=== PATIENT | female | born 1960 | race Caucasian/White ===

== ENCOUNTER 2019-01-06 06:00 | Inpatient (IN) | payer BC ==
[2019-01-05 08:46] VITALS: BMI 29.3
[~2019-01-06] VITALS: Ht 160 cm; Wt 77.1 kg
[2019-01-06] VITALS (25 sets, daily range): BP systolic 92–141; BP diastolic 52–81; PULSE 52–92; RESP 7–24; Ht 160 cm; Wt 77.1 kg
[~2019-01-06 06:00] MED LIST: CEFAZOLIN 2 GM/50 ML (PMX) 50 ML IVPB SCH; LACTATED RINGER'S 1,000 ML IV* SCH
[2019-01-06] MEDS ORDERED: AMLO1CAP10 PO (07:23)
[2019-01-06] MEDS ORDERED: PROG100C5 PO (07:26)
[2019-01-06] MEDS ORDERED: PRAS1TAB2 PO (07:27)
[2019-01-06] MEDS ORDERED: MULT-542 PO (07:28)
--- NOTE | 2019-01-06 07:41 | HPN ---
Date/Time of Note Date/Time of Note DATE: 01/06/19 TIME: 07:41 Interval H&P Admission Note Pt. seen H&P reviewed: No system changes JOE COLLAZO MD January 06, 2019 07:41
[2019-01-06] MEDS ORDERED: GELATIN SIZE 100 SPONGE ONE (07:42)
[2019-01-06] MEDS ORDERED: THROMBIN (BOVINE) 5,000 UNIT VIAL TP ONE (07:42)
[2019-01-06] MEDS ORDERED: BUPIVACAINE 0.5%/EPI (SDV) 30 ML INJ ONE (07:42)
[2019-01-06] MEDS ORDERED: CEFAZOLIN 1 GM INJ ONE ×2 (07:43→13:00)
[2019-01-06] MEDS ORDERED: HEPARIN 1000 UNITS/ML 10 ML INJ ONE (07:43)
--- NOTE | 2019-01-06 08:00 | PREAC ---
Date/Time of Note Date/Time of Note DATE: 01/06/19 TIME: 07:56 Anesthesia Eval and Record Evaluation Time Pre-Procedure Interview DATE: 01/06/19 TIME: 07:56 Age 58 Sex female NPO: 8 hrs Preoperative diagnosis L4-L5 degenerative spondylolisthesis Planned procedure L4-L5 Lumbar decompression Past Medical History Past Medical History: Includes Cardio: HTN GI: Morbid obesity Surgery & Anesthesia Issues No known issue Meds Anticoagulation: No Beta Sabrina within 24 hr: No Reason Beta Sabrina not given: Pt. not on B-Sabrina Reported Medications Multivitamin* (Daily Value*) 1 Each Tablet, 1 TAB PO DAILY, TAB 01/06/19 Prasterone (Dhea)/Calcium Carb (Dhea Tablet) 1 Each Tablet, 1 EACH PO DAILY, TAB 01/06/19 Progesterone,Micronized* (Progesterone*) 100 Mg Capsule, 100 MG PO HS, CAP 01/06/19 Amlodipine Besylate/Benazepril (Amlodipine-Benazepril 5-20 mg) 1 Each Capsule, 1 EACH PO QPM, CAP 01/06/19 Current Medications Cefazolin Sodium/ Dextrose 50 ml @ 100 mls/hr PRE-OP IVPB ; Start 01/06/19 at 06:00; Stop 01/06/19 at 15:00 Lactated Ringer's 1,000 ml @ 0 mls/hr Q0M IV* Last administered on 01/06/19at 07:22; Admin Dose 25 MLS/HR; Start 01/06/19 at 06:00; Stop 01/06/19 at 15:00 Meds reviewed: Yes Allergies Coded Allergies: prochlorperazine (Verified Allergy, Severe, 01/06/19) castor oil (Verified Allergy, Unknown, 01/06/19) morphine (Verified Allergy, Unknown, 01/06/19) Allergies Reviewed: Yes Labs/Studies Labs Reviewed: Reviewed by anesthesiologist Blood Bank Test 01/06/19 06:51 01/06/19 07:20 Blood Product Summary Counts Blood Type O POSITIVE test: N/A Studies: ECG Pre-procedure Exam Last vitals Vital Signs Date Temp Pulse Resp B/P (MAP) Pulse Ox O2 O2 Flow FiO2 Time Delivery Rate 01/06/19 97.2 89 18 141/81 97 Room Air 07:14 (101) Airway: Adequate mouth opening, Adequate thyromental dist Mallampati: Mallampati II Teeth: Normal Lung: Normal Heart: Normal ASA Physical Status ASA physical status: 3 Emergency: None Planned Anesthetic General/MAC: ETT Planned Pain Management Parenteral pain med Pre-operative Attestations Prior to commencing anesthesia and surgery, the patient was re-evaluated, there was verification of: *The patient's identity *The results of appropriate recent lab work and preoperative vital signs *The above evaluation not changing prior to induction *Anesthetic plan, risk benefits, alternative and complications discussed with patient/family; questions answered; patient/family understands, accepts and wishes to proceed. CHRISTOPHER SYKES MD January 06, 2019 07:59
[2019-01-06] MEDS ORDERED: MIDAZOLAM 1 MG/ML 2 ML INJ ONE (08:05)
[2019-01-06] MEDS ORDERED: SURGIFOAM POWDER 1 GM KIT ONE (09:17)
[2019-01-06] MEDS ORDERED: FUROSEMIDE 20 MG INJ ONE (12:17)
[2019-01-06] MEDS ORDERED: FENTAnyl 50 MCG/ML VIAL ONE ×2 (12:41→13:17)
[2019-01-06] MEDS ORDERED: METOCLOPRAMIDE 10 MG INJ ONE (12:43)
[2019-01-06] MEDS ORDERED: ONDANSETRON 4 MG INJ ONE (12:43)
--- NOTE | 2019-01-06 12:47 | OPR ---
Date/Time of Note Date/Time of Note DATE: 01/06/19 TIME: 12:36 Operative Report Free Text/Dictation DATE OF OPERATION: 01/06/2019 PREOPERATIVE DIAGNOSES: 1. L4-5 unsatble grade 2 degenerative spondylolisthesis with spinal stenosis and bilateral L4 and L5 radiculopathy 2. Obesity BMI: 30.1 kg/m2 POSTOPERATIVE DIAGNOSES: 1. L4-5 unsatble grade 2 degenerative spondylolisthesis with spinal stenosis and bilateral L4 and L5 radiculopathy 2. Obesity BMI: 30.1 kg/m2 OPERATION PERFORMED: 1. Anterior lumbar interbody fusion L4-5 2. Placement of anterior interbody device L4-5 3. Placement of posterior spinal segmental instrumentation L4-5 4. Posterior spinal fusion L4-5 5. Interpretation of neuromonitoring SURGEON: Joe Collazo MD Vascular surgeon: Ed Mathis MD ANESTHESIA: General endotracheal ESTIMATED BLOOD LOSS: 150 cc SURGICAL INDICATION: The patient is a 58 year-old female who presents with an increasing history of back and bilateral (right greater than left) lower extremity pain. The patient was found to have an unstable spondylolisthesis at L4-5 with associated stenosis. The patient had failed conservative treatments. Risks, benefits and alternatives to an anterior and posterior spinal fusion with instrumentation were explained to the patient including but not exclusive of bleeding, infection, visceral injury, nerve injury, nonunion, instrumentation failure, lack of symptom relief, myocardial infarction, stroke, and pulmonary embolism, and they wished to proceed. DESCRIPTION OF TECHNIQUE: The patient was identified in the preoperative area and taken to the operating room. Rapid induction of general endotracheal anesthesia was performed. Patient was given 2 grams of ancef for prophylaxis. The patient was positioned in the supine position on the operative table. All bony prominences were well padded. The patient's abdomen and left flank were prepped and draped in the usual sterile fashion. An oblique skin incision was made across the L4-L5 level by our vascular surgeon Dr. Mathis. After the exposure was completed, I performed a L4-L5 diskectomy. The disc was incised using a sharp 15 mm blade. I then used a harris elevator to loosen the disk material from the superior and inferior endplates. I then used a rongeur to remove the disc material and a series of curved and straight curettes to evacuate the disc space. I also used a series of pituitaries and kerrisons to ensure appropriate end plate preparation. Attention was placed to ensure removal of disk material to bleeding endplates without violation of the endplate. I then used the trial rasps to prepare and size the disc space and was able to place a 13 mm trial allograft FRA spacer with 12 degrees of lordosis. To ensure appropriate sizing of the implant, I checked for fit and placement under C arm control and I felt the 12 degree lordotic 13 mm cage gained good lordosis and scientology of disc height and was an appropriate fit. I also ensured appropriate reduction of the grade 2 spondylolisthesis. I then inserted the 15mm RFA cage after the trail. This cage was filled with a extra-small BMP and morselized bone allograft. A butress screw with a washer was then placed in the L4 vertebral body using the guide under fluoroscopy . Additional morselized allograft was placed around and anterior to the cage in the disc space. 2mL of tisseal was also used prior to placement of the cage in order to reduce the risk of BMP radiculitis. The wound was then irrigated. X- rays were taken to check for instruments. The wound was then closed by our vascular access surgeon in standard technique. The posterior rectus sheath and anterior rectus sheath were both repaired. Sterile dressing was then placed. Attention was then turned toward the instrumented fusion procedure from L4-L5. At this point, the patient was flipped to the prone position with all bony promi nences well-padded on a Andres table. We ensured that the antibiotics were appropriately redosed. The lumbar spine was then prepped and draped in sterile fashion. A timeout was once again performed. Using intraoperative fluoroscopy, the pedicles were identified at each level. Care was taken to alter the fluoroscopic view to have a true AP and lateral at each level. Jamshidi needles were then passed down to the lateral aspect of the pedicles through stab incisions. The Jamshidi needles were malleted into the pedicles. These were also performed under EMG guidance. Care was taken to ensure that the needles did not pass the medial wall of the pedicle on the AP view prior to checking that the needle was past the posterior wall of the vertebral body. The needles were then malleted further into the vertebral bodies themselves. Guidewires were passed through the needles and the needles were removed. Taps were applied over the guidewires. Screws were then placed bilaterally into the vertebral bodies. AP and lateral views confirmed appropriate placement of the instrumentation. Attention was turned toward the posterior spinal fusion from L4-5. Rods were selected of the appropriate length and placed into the screw heads. End caps were applied and final tightening was performed using a spbbha-cxdoeec-nzrjak wrench. The exposed facet joints were decorticated using a bur. A small remaining amount of allograft was placed into the facet joints to facilitate the posterior fusion. Given the patients obesity (BMI 30.1 kg/m2), this procedure took an addition 45 minutes for exposure and implant placement. The wound was irrigated copiously using normal saline. The fascia was then closed using 1 Vicryl in interrupted fashion. Subcutaneous tissue was closed using 2-0 Vicryl in interrupted fashion. Skin was closed using a running 4-0 Monocryl stitch. The wounds were dressed using Dermabond, sterile gauze and Tegaderm. The patient was returned to the supine position. The patient was extubated immediately postoperatively and taken to the recovery room in stable condition. Patient tolerated the procedure well and left the operating room in stable condition. Implants used: 1.Depuy/ Synthes FRA 13mm height/ 12 degree lordotic cage at L4-5 2. Extra-Small BMP with 30 cc of cancellous bone chips 3. 6.0/24 mm buttress screws with washer 1 4. NuVasive 6.545 mm screws at bilateral L4 and L5 7. 35 mm Antwan x 1 (Right), 30 mm Antwan x 1 (Left) Procedure Date: January 06, 2019 Preoperative Diagnosis 1. L4-5 unsatble grade 2 degenerative spondylolisthesis with spinal stenosis and bilateral L4 and L5 radiculopathy 2. Obesity BMI: 30.1 kg/m2 Postoperative Diagnosis 1. L4-5 unsatble grade 2 degenerative spondylolisthesis with spinal stenosis and bilateral L4 and L5 radiculopathy 2. Obesity BMI: 30.1 kg/m2 Operation/Procedure Performed 1. Anterior lumbar interbody fusion L4-5 2. Placement of anterior interbody device L4-5 3. Placement of posterior spinal segmental instrumentation L4-5 4. Posterior spinal fusion L4-5 5. Interpretation of neuromonitoring Surgeon see signature line Cad Draftsman see op report Anesthesia Type: general Estimated Blood Loss: 200 - 250 ml's Transfusion none Specimen none Grafts/Implants see op report Complications none Pt Condition Post Procedure: stable Disposition: PACU Procedure Description DESCRIPTION OF TECHNIQUE: The patient was identified in the preoperative area and taken to the operating room. Rapid induction of general endotracheal anesthesia was performed. Patient was given 2 grams of ancef for prophylaxis. The patient was positioned in the supine position on the operative table. All bony prominences were well padded. The patient's abdomen and left flank were prepped and draped in the usual sterile fashion. An oblique skin incision was made across the L4-L5 level by our vascular surgeon Dr. Mathis. After the exposure was completed, I performed a L4-L5 diskectomy. The disc was incised using a sharp 15 mm blade. I then used a harris elevator to loosen the disk material from the superior and inferior endplates. I then used a rongeur to remove the disc material and a series of curved and straight curettes to evacuate the disc space. I also used a series of pituitaries and kerrisons to ensure appropriate end plate preparation. Attention was placed to ensure removal of disk material to bleeding endplates without violation of the endplate. I then used the trial rasps to prepare and size the disc space and was able to place a 13 mm trial allograft FRA spacer with 12 degrees of lordosis. To ensure appropriate sizing of the implant, I checked for fit and placement under C arm control and I felt the 12 degree lordotic 13 mm cage gained good lordosis and scientology of disc height and was an appropriate fit. I also ensured appropriate reduction of the grade 2 spondylolisthesis. I then inserted the 15mm RFA cage after the trail. This cage was filled with a extra-small BMP and morselized bone allograft. A butress screw with a washer was then placed in the L4 vertebral body using the guide under fluoroscopy . Additional morselized allograft was placed around and anterior to the cage in the disc space. 2mL of tisseal was also used prior to placement of the cage in order to reduce the risk of BMP radiculitis. The wound was then irrigated. X- rays were taken to check for instruments. The wound was then closed by our vascular access surgeon in standard technique. The posterior rectus sheath and anterior rectus sheath were both repaired. Sterile dressing was then placed. Attention was then turned toward the instrumented fusion procedure from L4-L5. At this point, the patient was flipped to the prone position with all bony prominences well-padded on a Andres table. We ensured that the antibiotics were appropriately redosed. The lumbar spine was then prepped and draped in sterile fashion. A timeout was once again performed. Using intraoperative fluoroscopy, the pedicles were identified at each level. Care was taken to alter the fluoroscopic view to have a true AP and lateral at each level. Jamshidi needles were then passed down to the lateral aspect of the pedicles through stab incisions. The Jamshidi needles were malleted into the pedicles. These were also performed under EMG guidance. Care was taken to ensure that the needles did not pass the medial wall of the pedicle on the AP view prior to checking that the needle was past the posterior wall of the vertebral body. The needles were then malleted further into the vertebral bodies themselves. Guidewires were passed through the needles and the needles were removed. Taps were applied over the guidewires. Screws were then placed bilaterally into the vertebral bodies. AP and lateral views confirmed appropriate placement of the instrumentation. Attention was turned toward the posterior spinal fusion from L4-5. Rods were selected of the appropriate length and placed into the screw heads. End caps were applied and final tightening was performed using a tmfmja-qcictmh-yduwiv wrench. The exposed facet joints were decorticated using a bur. A small remaining amount of allograft was placed into the facet joints to facilitate the posterior fusion. Given the patients obesity (BMI 30.1 kg/m2), this procedure took an addition 45 minutes for exposure and implant placement. The wound was irrigated copiously using normal saline. The fascia was then closed using 1 Vicryl in interrupted fashion. Subcutaneous tissue was closed using 2-0 Vicryl in interrupted fashion. Skin was closed using a running 4-0 Monocryl stitch. The wounds were dressed using Dermabond, sterile gauze and Tegaderm. The patient was returned to the supine position. The patient was extubated immediately postoperatively and taken to the recovery room in stable condition. Patient tolerated the procedure well and left the operating room in stable condition. Implants used: 1.Depuy/ Synthes FRA 13mm height/ 12 degree lordotic cage at L4-5 2. Extra-Small BMP with 30 cc of cancellous bone chips 3. 6.0/24 mm buttress screws with washer 1 4. NuVasive 6.545 mm screws at bilateral L4 and L5 7. 35 mm Antwan x 1 (Right), 30 mm Antwan x 1 (Left) JOE COLLAZO MD January 06, 2019 12:46
[2019-01-06] MEDS ORDERED: LIDOCAINE 2% (SDV) 5 ML INJ ONE (13:00)
[2019-01-06] MEDS ORDERED: ONDANSETRON 4 MG INJ IV PRN ×2 (13:00→13:30)
[2019-01-06] MEDS ORDERED: NALOXONE (0.4 MG/ML) INJ IV PRN (13:00)
[2019-01-06] MEDS ORDERED: NACL 0.9% 3 ML SYG IV SCH (13:00)
[2019-01-06] MEDS ORDERED: AL HYDROX/MG HYDROX/SIMETH 30 ML CUP PO PRN (13:00)
[2019-01-06] MEDS ORDERED: PROPOFOL 20 ML ONE (13:00)
[2019-01-06] MEDS ORDERED: ROCURONIUM 50 MG INJ ONE (13:00)
[2019-01-06] MEDS ORDERED: ACETAMINOPHEN 325 MG TAB PO PRN (13:00)
[2019-01-06] MEDS ORDERED: GLYCOPYRROLATE 0.4 MG INJ ONE (13:00)
[2019-01-06] MEDS ORDERED: NEOSTIGMINE 3 MG/3 ML SYRINGE ONE (13:00)
--- NOTE | 2019-01-06 13:19 | PAC ---
Date/Time of Note Date/Time of Note DATE: 01/06/19 TIME: 13:18 Post-Anesthesia Notes Post-Anesthesia Note Last documented vital signs Vital Signs Date Temp Pulse Resp B/P (MAP) Pulse Ox O2 O2 Flow FiO2 Time Delivery Rate 01/06/19 97.2 89 18 141/81 97 Room Air 07:14 (101) Activity: WNL Respiratory function: WNL Cardiovascular function: WNL Mental status: Baseline Pain reasonably controlled: Yes Hydration appropriate: Yes Nausea/Vomiting absent: Yes Comments BP:119/56, P:78, Spo2:100%, T:98,8 CHRISTOPHER SYKES MD January 06, 2019 13:19
[2019-01-06] MEDS ORDERED: METOCLOPRAMIDE 10 MG INJ IV PRN (13:30)
[2019-01-06] MEDS ORDERED: LABETALOL HCL 20MG INJ IV PRN (13:30)
[2019-01-06] MEDS ORDERED: hydrALAzine 20 MG INJ IV PRN (13:30)
[2019-01-06] MEDS ORDERED: DIPHENHYDRAMINE 50 MG INJ IV PRN ×2 (13:30→20:00)
[2019-01-06] MEDS ORDERED: FENTAnyl 50 MCG/ML VIAL IV PRN ×2 (13:30)
[2019-01-06] MEDS: HYDROmorphONE 0.2 MG/ML PCA IV SCH (13:36)
[2019-01-06] MEDS: ACETAMINOPHEN 1000MG/100ML IV 100 ML IVPB SCH (14:15)
--- NOTE | 2019-01-06 15:33 | OPR ---
DATE OF OPERATION: PREOPERATIVE DIAGNOSIS: Degenerative disk disease, lumbar spine. POSTOPERATIVE DIAGNOSIS: Degenerative disk disease, lumbar spine. PROCEDURE: Anterior retroperitoneal exposure interbody fusion, lumbar spine, L4 to L5. SURGEON: Rajni Velez MD ESTIMATED BLOOD LOSS: Joe Collazo MD INFORMED CONSENT: Risks, benefits, complications, alternative therapies and high-risk nature of the operation were fully explained to the patient and the family. Consent was obtained. Risks and benef its that were explained to the patient and the family included but not limited to bleeding, infection , damage to bowel, damage to ureter, wound infection, wound dehiscence, DVT, PE, loss of limb, loss o f life, high-risk nature of the operation were fully explained and stressed to the patient. All ques tions were answered. OPERATIVE TECHNIQUE: The patient was placed in supine position, prepped and draped in usual sterile fashion. Timeout was called. Antibiotic was given. I made a 10 cm incision in the left lower quadr ant in horizontal fashion. Incision was taken down to subcutaneous tissue which was then opened usin g electrocautery. Left anterior rectus sheath was opened in the direction of the wound. Posterior r ectus sheath was incised superiorly about 2 cm. Bookwalter retractor was placed retracting the bowel contents to the right, left rectus muscle to the left. I dissected the left common iliac artery and vein, external iliac artery and vein. The left iliolumbar veins and the lowest segmental vessels on the left side were ligated using 2-0 silk sutures and titanium clip. Exposure for L4 to L5 was obta ined by retracting the left common iliac artery and vein, external iliac artery and vein, vena cava a nd aorta to the right. We proceeded with the diskectomy and placement of the new cage. Please refer to Dr. Collazo's dictation for the details of that operation. After all the x-rays were satisfact ory read by Dr. Collazo, needle count and sponge count was correct. The wound was irrigated using antibiotic solution. Anterior rectus sheath was closed using a #1 Vicryl suture in running fashion w ith interrupted sutures in the middle. The wound was irrigated again and closed in 2 layers of 2-0 V icryl suture for subcutaneous and Steri-Strips for the skin. The patient tolerated procedure well. Dictated By: RAJNI VELEZ MD FM/NTS Conf#: [id number] [facility]#: [id number] CC: JOE COLLAZO MD; MARIKA LORD MD;*EndCC*
[2019-01-06] MEDS: CEFAZOLIN 1 GM/50 ML (PMX) 50 ML IVPB SCH ×2 (17:40→23:26)
[2019-01-06] MEDS: DIPHENHYDRAMINE 50 MG INJ IV PRN (17:41)
[2019-01-06] MEDS ORDERED: KETOROLAC 30 MG INJ IV STA (19:58)
[2019-01-06] MEDS ORDERED: METHOCARBAMOL 500 MG TAB PO PRN (20:00)
[2019-01-06] MEDS ORDERED: KETOROLAC 30 MG INJ IV PRN (20:00)
[2019-01-06] MEDS: HYDROCODONE/APAP (10/325) TAB GTB PRN (23:30)
[2019-01-07] MEDS: ACETAMINOPHEN 1000MG/100ML IV 100 ML IVPB SCH (01:21)
[2019-01-07] MEDS: HYDROmorphONE 0.2 MG/ML PCA IV SCH (02:19)
[2019-01-07] MEDS: DIPHENHYDRAMINE 50 MG INJ IV PRN (02:29)
[2019-01-07] MEDS: HYDROCODONE/APAP (10/325) TAB GTB PRN (04:51)
[2019-01-07] MEDS ORDERED: ACETAMINOPHEN 1000MG/100ML IV 100 ML IVPB STA (04:58)
[2019-01-07] MEDS ORDERED: LORAZEPAM 2 MG INJ IV STA (04:58)
[2019-01-07] MEDS: CEFAZOLIN 1 GM/50 ML (PMX) 50 ML IVPB SCH ×2 (05:12→12:33)
[2019-01-07] MEDS: OXYCODONE/ACETAMINOPHEN (10/325) TAB PO PRN ×5 (07:36→23:28)
--- NOTE | 2019-01-07 07:53 | CONS ---
Consultation Date/Type/Reason Admit Date/Time January 06, 2019 at 06:00 Initial Consult Date Date/Time of Note DATE: 01/07/19 TIME: 07:30 24 HR Interval Summary Free Text/Dictation S: 58 yo F POD#1 s/p L4-5 ALIF w/ PSIF for unstable grade 2 spondylolisthesis. No acute events over-night. Complaining of back pain w/ difficulty w/ pain control given multiple drug allergies. Complains of itchiness w/ dilaudid. Dilaudid was d/c this am. Currently on percocet, robaxin and toradol for pain control. Tolerating clears. Reports that pain is under better control. She has not passed gas. O: Vital Signs Date Temp Pulse Resp B/P (MAP) Pulse Ox O2 O2 Flow FiO2 Time Delivery Rate 01/07/19 20 01:43 01/06/19 98.1 92 18 121/74 100 23:49 (90) Gen: AAOx3, NAD Spine: 4/5 Right KE, 01/08 b/l TA/GS/EHL, +SILT L3-S1, incisions C/D/I Abdomen: Incision C/D/I, mild distension, no TTP Labs: Laboratory Tests Test 01/07/19 04:39 01/07/19 07:16 Hemoglobin 11.3 g/dl Hematocrit 33.9 % Sodium Level 139 mmol/L Potassium Level 3.5 mmol/L Chloride Level 106 mmol/L Carbon Dioxide Level 28 mmol/L Anion Gap 5 Blood Urea Nitrogen 9 mg/dl Creatinine 0.63 mg/dl Est Glomerular Filtrat Rate mL/min > 60 mL/min Glucose Level 96 mg/dl Calcium Level 8.8 mg/dl Lab Scanned Report REFERENCE LAB [id number] Current Medications Medications Dose Sig/Erica Start Time Status Last (Trade) Ordered Route PRN Stop Time Admin Dose Reason Admin Cefazolin 50 ml @ PRE-OP 01/06/19 DC Sodium/ 100 mls/hr IVPB 06:00 01/06/19 Dextrose 12:53 Lactated 1,000 ml @ Q0M IV* 01/06/19 DC 01/06/19 Ringer's 0 mls/hr 06:00 01/06/19 07:22 25 12:54 MLS/HR Gelatin 2 sponge STK-MED 01/06/19 DC 01/06/19 (Gelatin ONCE .ROUTE 07:42 01/06/19 07:42 1 Size 100 07:43 SPONGE Sponge) Thrombin 20,000 unit STK-MED 01/06/19 DC 01/06/19 (Thrombin-Jmi ONCE TP 07:42 01/06/19 07:42 15,000 ) 07:43 UNIT Bupivacaine 30 ml STK-MED 01/06/19 DC 01/06/19 HCl/ ONCE .ROUTE 07:42 01/06/19 07:42 30 ML Epinephrine 07:43 Bitart ([place]aine 0.5%/ Epi (Sdv)) Cefazolin 1 gm STK-MED 01/06/19 DC 01/06/19 Sodium ONCE .ROUTE 07:43 01/06/19 07:43 1 GM (Ancef) 07:44 Heparin 30,000 unit STK-MED 01/06/19 DC Sodium ONCE .ROUTE 07:43 01/06/19 (Porcine) 07:44 (Heparin (1000 Units/ml)) Midazolam 2 mg STK-MED 01/06/19 DC HCl ONCE .ROUTE 08:05 01/06/19 (Versed) 08:06 Fentanyl 5 ml @ ud STK-MED 01/06/19 DC ONCE .ROUTE 08:01/06/19 08:06 Gelatin 1 gm STK-MED 01/06/19 DC 01/06/19 (Surgifoam ONCE .ROUTE 09:17 01/06/19 09:17 1 GM Kit) 09:18 Furosemide 20 mg STK-MED 01/06/19 DC (Lasix) ONCE .ROUTE 12:17 01/06/19 12:18 Fentanyl 100 mcg STK-MED 01/06/19 DC (Sublimaze) ONCE .ROUTE 12:41 01/06/19 12:42 Ondansetron 4 mg STK-MED 01/06/19 DC HCl (Zofran ONCE .ROUTE 12:43 01/06/19 Inj) 12:44 10 mg STK-MED 01/06/19 DC Metoclopramid ONCE .ROUTE 12:43 01/06/19 e HCl 12:44 (Reglan) Cefazolin 50 ml @ Q6 IVPB 01/06/19 01/07/19 Sodium 100 mls/hr 18:00 01/07/19 05:12 100 12:29 MLS/HR Ondansetron 4 mg Q6H PRN 01/06/19 HCl (Zofran IV 13:00 Inj) NAUSEA/VOMITI NG Al 15 ml Q4H PRN 01/06/19 Hydrox/Mg PO 13:00 Hydrox/Simeth .CONSTIPATION icone (Mag-Al Plus) Docusate 100 mg BID PO 01/07/19 Sodium 09:00 (Colace) 650 mg Q4H PRN 01/06/19 Acetaminophen PO TEMP 13:00 (Tylenol GREATER THAN Tab) 101F OR BERRY IV Flush 3 ml PER 01/06/19 (NS 3 ml) PROTOCOL IV 13:00 Naloxone 0.2 mg Q2M PRN 01/06/19 HCl IV RR 8 13:00 (Narcan) BREATHS/MIN OR LESS MG/HR Q4PCA IV 01/06/19 DC 01/07/19 Hydromorphone CONTINUOUS 13:00 01/07/19 02:19 6 MG HCl R... 05:03 (Dilaudid PIPE INSTALLER) Propofol 20 ml @ ud STK-MED 01/06/19 DC ONCE .ROUTE 13:00 01/06/19 13:01 Neostigmine 3 mg STK-MED 01/06/19 DC Methylsulfate ONCE .ROUTE 13:01/06/19 13:01 (Neostigmine) Rocuronium 50 mg STK-MED 01/06/19 DC [place] ONCE .ROUTE 13:01/06/19 (Zemuron) 13:01 0.4 mg STK-MED 01/06/19 DC Glycopyrrolat ONCE .ROUTE 13:00 01/06/19 e (Robinul) 13:01 Lidocaine 100 mg STK-MED 01/06/19 DC (Xylocaine ONCE .ROUTE 13:00 01/06/19 2% (Sdv)) 13:01 Cefazolin 1 gm STK-MED 01/06/19 DC Sodium ONCE .ROUTE 13:01/06/19 (Ancef) 13:01 Fentanyl 100 mcg STK-MED 01/06/19 DC (Sublimaze) ONCE .ROUTE 13:17 01/06/19 13:18 Fentanyl 25 mcg PACU ORDER 01/06/19 DC 01/06/19 (Sublimaze) PRN IV MILD 13:30 5/3/19 16:53 25 MCG PAIN 1-3 17:30 Fentanyl 50 mcg PACU ORDER 01/06/19 DC (Sublimaze) PRN IV MOD 13:30 01/06/19 PAIN 4-6 17:30 Ondansetron 4 mg PACU ORDER 01/06/19 DC HCl (Zofran PRN IV 13:30 01/06/19 Inj) NAUSEA/VOMITI 17:30 NG 10 mg PACU ORDER 01/06/19 DC Metoclopramid PRN IV 13:30 01/06/19 e HCl NAUSEA/VOMITI 17:30 (Reglan) NG Labetalol 5 mg PACU ORDER 01/06/19 DC HCl PRN IV HIGH 13:30 01/06/19 (Labetalol) BLOOD 17:30 PRESSURE Hydralazine 5 mg PACU ORDER 01/06/19 DC HCl PRN IV HIGH 13:30 01/06/19 (Apresoline) BLOOD 17:30 PRESSURE 25 mg PACU ORDER 01/06/19 DC Diphenhydrami PRN IV 13:30 01/06/19 ne HCl .PRURITUS 17:30 (Benadryl) 100 ml @ Q12H IVPB 01/06/19 DC 01/07/19 Acetaminophen 400 mls/hr 14:00 01/07/19 01:21 400 02:14 MLS/HR 25 mg Q6H PRN 01/06/19 01/07/19 Diphenhydrami IV PRURITIS 18:00 02:29 25 MG ne HCl (Benadryl) Ketorolac 30 mg ONCE STAT 01/06/19 DC 01/06/19 Tromethamine IV 19:58 01/06/19 20:23 30 MG (Toradol) 20:12 1 tab Q4H PRN 01/06/19 DC 01/07/19 Acetaminophen GTB MODERATE 20:00 01/07/19 04:51 1 TAB / PAIN LEVEL 05:03 Hydrocodone 4-6 Bitart ([place] (10/325)) 25 mg Q4 PRN IV 01/06/19 01/06/19 Diphenhydrami ITCHING 20:00 22:06 25 MG ne HCl (Benadryl) 500 mg Q8 PRN PO 01/06/19 01/06/19 Methocarbamol muscle spasm 20:00 23:30 500 MG (Robaxin) Ketorolac 30 mg Q12 PRN 01/06/19 01/07/19 Tromethamine IV PAIN 20:00 01/09/19 01:27 30 MG (Toradol) LEVEL 8-10 19:59 100 ml @ ONCE STAT 01/07/19 DC 01/07/19 Acetaminophen 400 mls/hr IVPB 04:58 01/07/19 05:33 400 05:12 MLS/HR Oxycodone/ 1 tab Q4H PRN 01/07/19 Acetaminophen PO SEVERE 05:00 (Endocet PAIN LEVEL (10/ 325)) 7-10 Lorazepam 1 mg ONCE STAT 01/07/19 DC 01/07/19 (Ativan) IV 04:58 01/07/19 05:12 1 MG 05:04 A/P: 58 yo F POD#1 s/p L4-5 ALIF w/ PSIF for unstable grade 2 spondylolisthesis. 1. OOB w/ PT; ok to get OOB w/ lumbar corset until LSO brace arrives 2. Advance diet to regular once passing gas 3. D/C Dilaudid and Robaxin 4. Pain control w/ toradol 30 mg IV Q12, Percocet 10/325 mg q 4hrs prn, ativan 1 mg IV Q 8 5. Appreciate med recs Exam/Review of Systems Exam Vitals Vital Signs Date Temp Pulse Resp B/P (MAP) Pulse Ox O2 O2 Flow FiO2 Time Delivery Rate 01/07/19 20 01:43 01/06/19 98.1 92 121/74 100 23:49 (90) 01/06/19 Nasal 2.0 19:38 Cannula Intake and Output 01/06/19 01/06/19 01/07/19 1515:00 23:00 07:00 IntakeIntake Total 1500 ml 990 ml 680 ml OutputOutput Total 500 ml 600 ml 800 ml BalanceBalance 1000 ml 390 ml -120 ml Results Result Diagram: 01/07/19 0439 01/07/19 0439 Results 24hrs Laboratory Tests Test 01/07/19 04:39 01/07/19 07:16 Hemoglobin 11.3 L Hematocrit 33.9 L Sodium Level 139 Potassium Level 3.5 Chloride Level 106 Carbon Dioxide Level 28 Anion Gap 5 Blood Urea Nitrogen 9 Creatinine 0.63 Est Glomerular Filtrat Rate mL/min > 60 Glucose Level 96 Calcium Level 8.8 Lab Scanned Report REFERENCE LAB Medications Medication Current Medications Cefazolin Sodium 50 ml @ 100 mls/hr Q6 IVPB Last administered on 01/07/19at 05:12; Admin Dose 100 MLS/HR; Start 01/06/19 at 18:00; Stop 01/07/19 at 12:29 Ondansetron HCl (Zofran Inj) 4 mg Q6H PRN IV NAUSEA/VOMITING; Start 01/06/19 at 13:00 Al Hydrox/Mg Hydrox/Simethicone (Mag-Al Plus) 15 ml Q4H PRN PO .CONSTIPATION; Start 01/06/19 at 13:00 Docusate Sodium (Colace) 100 mg BID PO ; Start 01/07/19 at 09:00 Acetaminophen (Tylenol Tab) 650 mg Q4H PRN PO TEMP GREATER THAN 101F OR BERRY; Start 01/06/19 at 13:00 IV Flush (NS 3 ml) 3 ml PER PROTOCOL IV ; Start 01/06/19 at 13:00 Naloxone HCl (Narcan) 0.2 mg Q2M PRN IV RR 8 BREATHS/MIN OR LESS; Start 01/06/19 at 13:00 Diphenhydramine HCl (Benadryl) 25 mg Q6H PRN IV PRURITIS Last administered on 01/07/19at 02:29; Admin Dose 25 MG; Start 01/06/19 at 18:00 Diphenhydramine HCl (Benadryl) 25 mg Q4 PRN IV ITCHING Last administered on 01/06/19at 22:06; Admin Dose 25 MG; Start 01/06/19 at 20:00 Methocarbamol (Robaxin) 500 mg Q8 PRN PO muscle spasm Last administered on 01/06at 23:30; Admin Dose 500 MG; Start 01/06/19 at 20:00 Ketorolac Tromethamine (Toradol) 30 mg Q12 PRN IV PAIN LEVEL 8-10 Last administered on 01/07/19at 01:27; Admin Dose 30 MG; Start 01/06/19 at 20:00; Stop 01/09/19 at 19:59 Oxycodone/ Acetaminophen (Endocet (10/ 325)) 1 tab Q4H PRN PO SEVERE PAIN LEVEL 7-10; Start 5/4/19 at 05:00 JOE COLLAZO MD January 07, 2019 07:53
[2019-01-07] MEDS ORDERED: POTASSIUM CHLORIDE 20 MEQ in DEXTROSE 5%-0.45% NACL 1,000 ML IV SCH (08:00)
[2019-01-07 08:14] VITALS: BP 96/56; PULSE 90; RESP 18
[2019-01-07] MEDS: DOCUSATE SODIUM 100 MG CAP PO SCH ×2 (08:37→21:02)
[2019-01-07] MEDS: D5W-0.45 NACL + KCL 20 MEQ 1,000 ML IV SCH ×3 (08:38→21:06)
[2019-01-07] MEDS ORDERED: POTASSIUM CHLORIDE (SR) 10 MEQ TAB PO ONE (12:00)
[2019-01-07 14:22] VITALS: BP 126/68; PULSE 92; RESP 20
--- NOTE | 2019-01-07 14:27 | CONS ---
DATE OF ADMISSION: 01/06/2019 DATE OF CONSULTATION: 01/07/2019 TYPE OF CONSULTATION: Postop medical consultation. Dear. Dr. Collazo: Thank you very much for allowing me to evaluate this 58-year-old female who underwent lumbar back jesus axel yesterday. HISTORICAL EVENTS: As you well know, this patient has had progressive disabling pain involving her l ow back, and because of this, having not responded to conservative therapy, elected to proceed with s urgical intervention. Postoperatively, she is reasonably comfortable noting some mild to moderate ba ck pain without cough, wheezing, shortness of breath, chest pain, nausea, vomiting, or abdominal pain . Pierre catheter is in place. PAST MEDICAL HISTORY: Very unremarkable except for hypertension without history of coronary artery d isease, diabetes, peptic ulcer disease or phlebitis: ALLERGIES: Include: 1. CASTOR OIL. 2. MORPHINE. 3. PROCHLORPERAZINE. FAMILY HISTORY: To be reviewed later. MEDICATIONS: Prior to admission included: 1. Multivitamin. 2. DHEA and calcium. 3. Amlodipine. 4. Benazepril. 5. Progesterone. PHYSICAL EXAMINATION: VITAL SIGNS: BP 96/56, pulse 70, respirations were 18. She was afebrile. EYES: Extraocular muscles were full. NOSE, MOUTH, AND THROAT: Normal. NECK: Supple. There was no jugular venous distention, thyroid enlargement or adenopathy. LUNGS: Clear. HEART: Rhythm regular, no murmur. No third or fourth sound. ABDOMEN: Nontender. Liver and spleen were not palpable. No mass or tenderness were noted. EXTREMITIES: No edema. Calves nontender. Pulses 2+. NEUROLOGIC: No lateralizing motor weakness. LABORATORY AND DIAGNOSTIC STUDIES: Hematocrit 33.9 and chemistries were normal. IMPRESSION: 1. Stable postop lumbar back surgery. 2. History of hypertension. Will resume BP meds and observe. PLAN: Will follow daily for signs and symptoms of thromboembolic disease. Dictated By: MARIKA LORD MD MR/NTS Conf#: [id number] DID#: [id number] CC: JOE COLLAZO MD;*EndCC*
[2019-01-07] MEDS: LORAZEPAM 2 MG INJ IV PRN (15:49)
[2019-01-07 19:30] VITALS: BP 113/66; PULSE 98; RESP 18
[2019-01-07] MEDS: AMLODIPINE 5 MG TAB PO SCH (21:02)
[2019-01-07] MEDS: PROGESTERONE 100 MG CAP PO SCH (21:02)
[2019-01-07] MEDS: BENAZEPRIL 20 MG TAB PO SCH (21:02)
[2019-01-08] MEDS: LORAZEPAM 2 MG INJ IV PRN ×4 (01:04→22:01)
[2019-01-08 02:40] VITALS: BP 98/60; PULSE 94; RESP 18
[2019-01-08] MEDS: OXYCODONE/ACETAMINOPHEN (10/325) TAB PO PRN ×4 (04:17→22:51)
[2019-01-08] MEDS: D5W-0.45 NACL + KCL 20 MEQ 1,000 ML IV SCH ×3 (04:30→14:30)
[2019-01-08 07:35] VITALS: BP 105/62; PULSE 95; RESP 18
[2019-01-08] MEDS ORDERED: LORAZEPAM 2 MG INJ IV PRN (08:00)
[2019-01-08] MEDS: DOCUSATE SODIUM 100 MG CAP PO SCH ×2 (10:12→21:26)
--- NOTE | 2019-01-08 11:17 | CONS ---
Assessment/Plan Assessment/Plan Assessment/Plan (Daily) 1. Doing well post op lumbar back surgery 2. Itching is controlled with ativan, will inc to q6 3. BP is controlled (no meds needed) 4. Low mag, will replete Consultation Date/Type/Reason Admit Date/Time January 06, 2019 at 06:00 Initial Consult Date Date/Time of Note DATE: 01/08/19 TIME: 11:16 Detailed Summary Respiratory: No cough, No shortness of breath Cardiovascular: No chest pain Gastrointestinal: no complaints Genitourinary: no complaints Musculoskeletal: back pain (is moderate and has right hip pain (noted preop)) Skin: other (itching is controlled with ativan) Exam/Review of Systems Exam Vitals Vital Signs Date Temp Pulse Resp B/P (MAP) Pulse Ox O2 O2 Flow FiO2 Time Delivery Rate 01/08/19 98.2 95 18 105/62 90 Room Air 07:35 (76) 01/06/19 2.0 19:38 Intake and Output 01/07/19 01/07/19 01/08/19 1515:00 23:00 07:00 IntakeIntake Total 550 ml 1240 ml 1100 ml OutputOutput Total 700 ml 800 ml BalanceBalance 550 ml 540 ml 300 ml Neck: No jvd Respiratory: clear to auscultation Cardiovascular: regular rate and rhythm Gastrointestinal: soft Extremities: No edema, No tenderness Results Result Diagram: 01/08/19 0428 01/08/19 0428 Results 24hrs Laboratory Tests Test 01/08/19 04:28 White Blood Count 6.3 Red Blood Count 3.63 L Hemoglobin 10.4 L Hematocrit 31.8 L Mean Corpuscular Volume 87.6 Mean Corpuscular Hemoglobin 28.7 L Mean Corpuscular Hemoglobin Concent 32.7 Red Cell Distribution Width 13.0 Platelet Count 165 Mean Platelet Volume 11.3 H Immature Granulocytes % 0.300 Neutrophils % 72.0 Lymphocytes % 12.7 L Monocytes % 10.3 Eosinophils % 4.4 Basophils % 0.3 Nucleated Red Blood Cells % 0.0 Immature Granulocytes # 0.020 Neutrophils # 4.6 Lymphocytes # 0.8 Monocytes # 0.7 Eosinophils # 0.3 Basophils # 0.0 Nucleated Red Blood Cells # 0.0 Sodium Level 137 Potassium Level 4.0 Chloride Level 106 Carbon Dioxide Level 25 Anion Gap 6 Blood Urea Nitrogen 7 Creatinine 0.53 Est Glomerular Filtrat Rate mL/min > 60 Glucose Level 118 Calcium Level 8.2 L Phosphorus Level 2.6 Magnesium Level 1.5 L Medications Medication Current Medications Ondansetron HCl (Zofran Inj) 4 mg Q6H PRN IV NAUSEA/VOMITING; Start 01/06/19 at 13:00 Al Hydrox/Mg Hydrox/Simethicone (Mag-Al Plus) 15 ml Q4H PRN PO .CONSTIPATION; Start 01/06/19 at 13:00 Docusate Sodium (Colace) 100 mg BID PO Last administered on 01/08/19 10:12; A dmin Dose 100 MG; Start 01/07/19 at 09:00 Acetaminophen (Tylenol Tab) 650 mg Q4H PRN PO TEMP GREATER THAN 101F OR BERRY Last administered on 01/07/19 22:01; Admin Dose 650 MG; Start 01/06/19 at 13:00 IV Flush (NS 3 ml) 3 ml PER PROTOCOL IV ; Start 01/06/19 at 13:00 Naloxone HCl (Narcan) 0.2 mg Q2M PRN IV RR 8 BREATHS/MIN OR LESS; Start 01/06/19 at 13:00 Diphenhydramine HCl (Benadryl) 25 mg Q6H PRN IV PRURITIS Last administered on 01/07/19 02:29; Admin Dose 25 MG; Start 01/06/19 at 18:00 Diphenhydramine HCl (Benadryl) 25 mg Q4 PRN IV ITCHING Last administered on 01/06/19 22:06; Admin Dose 25 MG; Start 01/06/19 at 20:00 Oxycodone/ Acetaminophen (Endocet (10/ 325)) 1 tab Q4H PRN PO SEVERE PAIN LEVEL 7-10 Last administered on 01/08/19 04:17; Admin Dose 1 TAB; Start 01/07/19 at 05:00 Lorazepam (Ativan) 1 mg Q8H PRN IV SLEEP Last administered on 01/08/19 08:33; Admin Dose 1 MG; Start 01/07/19 at 08:00 Potassium Chloride/Dextrose/ Sod Cl 1,000 ml @ 100 mls/hr Q10H IV Last administered on 01/08/19 07:10; Admin Dose 100 MLS/HR; Start 01/07/19 at 08:30 Progesterone (Prometrium) 100 mg HS PO Last administered on 01/07/19at 21:02; Admin Dose 100 MG; Start 01/07/19 at 21:00 Amlodipine Besylate (Norvasc) 5 mg QPM PO Last administered on 01/07/19at 21:02; Admin Dose 5 MG; Start 01/07/19 at 21:00 Benazepril HCl (Lotensin) 20 mg QPM PO Last administered on 01/07/19at 21:02; Admin Dose 20 MG; Start 01/07/19 at 21:00 MARIKA LORD MD January 08, 2019 11:17
[2019-01-08] MEDS ORDERED: MAGNESIUM SULFATE 3 GM in DEXTROSE 5% 100 ML IVPB ONE (11:30)
[2019-01-08 16:26] VITALS: BP 106/63; PULSE 91; RESP 18
[2019-01-08 19:38] VITALS: BP 100/63; PULSE 97; RESP 18
[2019-01-08] MEDS: BENAZEPRIL 20 MG TAB PO SCH (21:00)
[2019-01-08] MEDS: AMLODIPINE 5 MG TAB PO SCH (21:00)
[2019-01-08] MEDS: PROGESTERONE 100 MG CAP PO SCH (21:26)
[2019-01-09 01:55] VITALS: BP 106/62; PULSE 92; RESP 18
[2019-01-09] MEDS: D5W-0.45 NACL + KCL 20 MEQ 1,000 ML IV SCH (01:57)
[2019-01-09] MEDS: OXYCODONE/ACETAMINOPHEN (10/325) TAB PO PRN ×6 (02:49→23:21)
[2019-01-09] MEDS: LORAZEPAM 2 MG INJ IV PRN ×2 (03:58→10:15)
--- NOTE | 2019-01-09 07:26 | CONS ---
Consultation Date/Type/Reason Admit Date/Time January 06, 2019 at 06:00 Initial Consult Date Date/Time of Note DATE: 01/09/19 TIME: 07:23 24 HR Interval Summary Free Text/Dictation S: 58 yo F POD#3 s/p L4-5 ALIF w/ PSIF for unstable grade 2 spondylolisthesis. No acute events over-night. Paain controlled w/ IV ativam and percocet. Tolerating regular diet.She is passing gas. O: Vital Signs: Gen: AAOx3, NAD Spine: Neurostable Laboratory Tests Test 01/09/19 04:28 White Blood Count 5.8 10^3/ul Red Blood Count 3.61 10^6/ul Hemoglobin 10.2 g/dl Hematocrit 31.4 % Mean Corpuscular Volume 87.0 fl Mean Corpuscular Hemoglobin 28.3 pg Mean Corpuscular Hemoglobin Concent 32.5 g/dl Red Cell Distribution Width 12.8 % Platelet Count 209 10^3/UL Mean Platelet Volume 10.3 fl Immature Granulocytes % 0.500 % Neutrophils % 68.7 % Lymphocytes % 13.7 % Monocytes % 11.0 % Eosinophils % 5.8 % Basophils % 0.3 % Nucleated Red Blood Cells % 0.0 /100WBC Immature Granulocytes # 0.030 10^3/ul Neutrophils # 4.0 10^3/ul Lymphocytes # 0.8 10^3/ul Monocytes # 0.6 10^3/ul Eosinophils # 0.3 10^3/ul Basophils # 0.0 10^3/ul Nucleated Red Blood Cells # 0.0 10^3/ul Sodium Level 136 mmol/L Potassium Level 3.8 mmol/L Chloride Level 107 mmol/L Carbon Dioxide Level 21 mmol/L Anion Gap 8 Blood Urea Nitrogen 5 mg/dl Creatinine 0.50 mg/dl Est Glomerular Filtrat Rate mL/min > 60 mL/min Glucose Level 130 mg/dl Calcium Level 8.2 mg/dl Phosphorus Level 2.6 mg/dl Magnesium Level 1.9 mg/dl Current Medications Medications Dose Sig/Erica Start Time Status Last (Trade) Ordered Route PRN Stop Time Admin Dose Reason Admin Cefazolin 50 ml @ PRE-OP 01/06/19 DC Sodium/ 100 mls/hr IVPB 06:00 01/06/19 Dextrose 12:53 Lactated 1,000 ml @ Q0M IV* 5/3/19 DC 01/06/19 Ringer's 0 mls/hr 06:00 01/06/19 07:22 25 12:54 MLS/HR Gelatin 2 sponge STK-MED 01/06/19 DC 01/06/19 (Gelatin ONCE .ROUTE 07:42 01/06/19 07:42 1 Size 100 07:43 SPONGE Sponge) Thrombin 20,000 unit STK-MED 01/06/19 DC 01/06/19 (Thrombin-Jmi ONCE TP 07:42 01/06/19 07:42 15,000 ) 07:43 UNIT Bupivacaine 30 ml STK-MED 01/06/19 DC 01/06/19 HCl/ ONCE .ROUTE 07:42 01/06/19 07:42 30 ML Epinephrine 07:43 Bitart (Marcaine 0.5%/ Epi (Sdv)) Cefazolin 1 gm STK-MED 01/06/19 DC 01/06/19 Sodium ONCE .ROUTE 07:43 01/06/19 07:43 1 GM (Ancef) 07:44 Heparin 30,000 unit STK-MED 01/06/19 DC Sodium ONCE .ROUTE 07:43 01/06/19 (Porcine) 07:44 (Heparin (1000 Units/ml)) Midazolam 2 mg STK-MED 01/06/19 DC HCl ONCE .ROUTE 08:05 01/06/19 (Versed) 08:06 Fentanyl 5 ml @ ud STK-MED 01/06/19 DC ONCE .ROUTE 08:01/06/19 08:06 Gelatin 1 gm STK-MED 01/06/19 DC 01/06/19 (Surgifoam ONCE .ROUTE 09:17 01/06/19 09:17 1 GM Kit) 09:18 Furosemide 20 mg STK-MED 01/06/19 DC (Lasix) ONCE .ROUTE 12:17 01/06/19 12:18 Fentanyl 100 mcg STK-MED 01/06/19 DC (Sublimaze) ONCE .ROUTE 12:41 01/06/19 12:42 Ondansetron 4 mg STK-MED 01/06/19 DC HCl (Zofran ONCE .ROUTE 12:43 01/06/19 Inj) 12:44 10 mg STK-MED 01/06/19 DC Metoclopramid ONCE .ROUTE 12:43 01/06/19 e HCl 12:44 (Reglan) Cefazolin 50 ml @ Q6 IVPB 01/06/19 DC 01/07/19 Sodium 100 mls/hr 18:00 01/07/19 12:33 100 12:29 MLS/HR Ondansetron 4 mg Q6H PRN 01/06/19 HCl (Zofran IV 13:00 Inj) NAUSEA/VOMITI NG Al 15 ml Q4H PRN 01/06/19 Hydrox/Mg PO 13:00 Hydrox/Simeth .CONSTIPATION icone (Mag-Al Plus) Docusate 100 mg BID PO 01/07/19 01/08/19 Sodium 09:00 21:26 100 MG (Colace) 650 mg Q4H PRN 01/06/19 01/07/19 Acetaminophen PO TEMP 13:00 22:01 650 MG (Tylenol GREATER THAN Tab) 101F OR BERRY IV Flush 3 ml PER 01/06/19 (NS 3 ml) PROTOCOL IV 13:00 Naloxone 0.2 mg Q2M PRN 01/06/19 HCl IV RR 8 13:00 (Narcan) BREATHS/MIN OR LESS MG/HR Q4PCA IV 01/06/19 DC 01/07/19 Hydromorphone CONTINUOUS 13:00 01/07/19 02:19 6 MG HCl R... 05:03 (Dilaudid TECHNICAL SUPPORT REPRESENTATIVE) Propofol 20 ml @ ud STK-MED 01/06/19 DC ONCE .ROUTE 13:00 01/06/19 13:01 Neostigmine 3 mg STK-MED 01/06/19 DC Methylsulfate ONCE .ROUTE 13:01/06/19 13:01 (Neostigmine) Rocuronium 50 mg STK-MED 01/06/19 DC [place] ONCE .ROUTE 13:00 01/06/19 (Zemuron) 13:01 0.4 mg STK-MED 01/06/19 DC Glycopyrrolat ONCE .ROUTE 13:00 01/06/19 e (Robinul) 13:01 Lidocaine 100 mg STK-MED 01/06/19 DC (Xylocaine ONCE .ROUTE 13:00 01/06/19 2% (Sdv)) 13:01 Cefazolin 1 gm STK-MED 01/06/19 DC Sodium ONCE .ROUTE 13:00 01/06/19 (Ancef) 13:01 Fentanyl 100 mcg STK-MED 01/06/19 DC (Sublimaze) ONCE .ROUTE 13:17 01/06/19 13:18 Fentanyl 25 mcg PACU ORDER 01/06/19 DC 01/06/19 (Sublimaze) PRN IV MILD 13:30 01/06/19 16:53 25 MCG PAIN 1-3 17:30 Fentanyl 50 mcg PACU ORDER 01/06/19 DC (Sublimaze) PRN IV MOD 13:30 01/06/19 PAIN 4-6 17:30 Ondansetron 4 mg PACU ORDER 01/06/19 DC HCl (Zofran PRN IV 13:30 01/06/19 Inj) NAUSEA/VOMITI 17:30 NG 10 mg PACU ORDER 01/06/19 DC Metoclopramid PRN IV 13:30 01/06/19 e HCl NAUSEA/VOMITI 17:30 (Reglan) NG Labetalol 5 mg PACU ORDER 01/06/19 DC HCl PRN IV HIGH 13:30 01/06/19 (Labetalol) BLOOD 17:30 PRESSURE Hydralazine 5 mg PACU ORDER 01/06/19 DC HCl PRN IV HIGH 13:30 01/06/19 (Apresoline) BLOOD 17:30 PRESSURE 25 mg PACU ORDER 01/06/19 DC Diphenhydrami PRN IV 13:30 01/06/19 ne HCl .PRURITUS 17:30 (Benadryl) 100 ml @ Q12H IVPB 01/06/19 DC 01/07/19 Acetaminophen 400 mls/hr 14:00 01/07/19 01:21 400 02:14 MLS/HR 25 mg Q6H PRN 01/06/19 01/07/19 Diphenhydrami IV PRURITIS 18:00 02:29 25 MG ne HCl (Benadryl) Ketorolac 30 mg ONCE STAT 01/06/19 DC 01/06/19 Tromethamine IV 19:58 01/06/19 20:23 30 MG (Toradol) 20:12 1 tab Q4H PRN 01/06/19 DC 01/07/19 Acetaminophen GTB MODERATE 20:00 01/07/19 04:51 1 TAB / PAIN LEVEL 05:03 Hydrocodone 4-6 Bitart ([place] (10/325)) 25 mg Q4 PRN IV 01/06/19 01/06/19 Diphenhydrami ITCHING 20:00 22:06 25 MG ne HCl (Benadryl) 500 mg Q8 PRN PO 01/06/19 DC 01/06/19 Methocarbamol muscle spasm 20:00 01/07/19 23:30 500 MG (Robaxin) 07:43 Ketorolac 30 mg Q12 PRN 01/06/19 DC 01/07/19 Tromethamine IV PAIN 20:00 01/07/19 01:27 30 MG (Toradol) LEVEL 8-10 12:02 100 ml @ ONCE STAT 01/07/19 DC 01/07/19 Acetaminophen 400 mls/hr IVPB 04:58 01/07/19 05:33 400 05:12 MLS/HR Oxycodone/ 1 tab Q4H PRN 01/07/19 01/09/19 Acetaminophen PO SEVERE 05:00 02:49 1 TAB (Endocet PAIN LEVEL ()) 7-10 Lorazepam 1 mg ONCE STAT 01/07/19 DC 01/07/19 (Ativan) IV 04:58 01/07/19 05:12 1 MG 05:04 Lorazepam 1 mg Q8H PRN 01/07/19 DC 01/08/19 (Ativan) IV SLEEP 08:00 01/08/19 08:33 1 MG 15:22 Potassium 1,010 ml @ Q10H6M IV 01/07/19 DC Chloride 20 100 mls/hr 08:00 01/07/19 meq/ 08:04 Dextrose/Sodi um Chloride Potassium 1,000 ml @ Q10H IV 01/07/19 01/09/19 Chloride/Dext 100 mls/hr 08:30 01:57 100 dionicio/ Sod Cl MLS/HR 100 mg HS PO 01/07/19 01/08/19 Progesterone 21:00 21:26 100 MG (Prometrium) 1 each QPM PO 01/07/19 DC Miscellaneous 21:00 01/07/19 Information 21:00 Potassium 30 meq ONCE ONCE 01/07/19 DC 01/07/19 Chloride PO 12:00 01/07/19 12:32 30 MEQ (Klor-Con 10) 12:16 Amlodipine 5 mg QPM PO 01/07/19 01/07/19 Besylate 21:00 21:02 5 MG (Norvasc) Benazepril 20 mg QPM PO 01/07/19 01/07/19 HCl 21:00 21:02 20 MG (Lotensin) Magnesium 106 ml @ ONCE ONCE 01/08/19 DC 01/08/19 Sulfate 3 35.333 mls/ IVPB 11:30 01/08/19 13:10 35.333 gm/Dextrose hr 14:29 MLS/HR Lorazepam 1 mg Q6 PRN IV 01/08/19 DC (Ativan) SLEEP 08:00 01/08/19 15:30 Lorazepam 1 mg Q6H PRN 01/08/19 01/09/19 (Ativan) IV MUSCLE 15:30 03:58 1 MG SPASMS A/P: 58 yo F POD#3 s/p L4-5 ALIF w/ PSIF for unstable grade 2 spondylolisthesis. 1. Convert IV ativan to PO 2. OOB w/ PT 3. Dispo planning for tomorrow ifg cleared by PT 4. Appreciate med recs Exam/Review of Systems Exam Vitals Vital Signs Date Temp Pulse Resp B/P (MAP) Pulse Ox O2 O2 Flow FiO2 Time Delivery Rate 01/09/19 98.0 92 18 106/62 95 Room Air 01:55 (77) 01/08/19 2.0 07:45 Intake and Output 01/08/19 01/08/19 01/09/19 1515:00 23:00 07:00 IntakeIntake Total 700 ml 1156 ml 1150 ml OutputOutput Total 1200 ml BalanceBalance 700 ml 1156 ml -50 ml Results Result Diagram: 01/09/19 0428 01/09/19 0428 Results 24hrs Laboratory Tests Test 01/09/19 04:28 White Blood Count 5.8 Red Blood Count 3.61 L Hemoglobin 10.2 L Hematocrit 31.4 L Mean Corpuscular Volume 87.0 Mean Corpuscular Hemoglobin 28.3 L Mean Corpuscular Hemoglobin Concent 32.5 Red Cell Distribution Width 12.8 Platelet Count 209 # Mean Platelet Volume 10.3 Immature Granulocytes % 0.500 H Neutrophils % 68.7 Lymphocytes % 13.7 L Monocytes % 11.0 Eosinophils % 5.8 Basophils % 0.3 Nucleated Red Blood Cells % 0.0 Immature Granulocytes # 0.030 Neutrophils # 4.0 Lymphocytes # 0.8 Monocytes # 0.6 Eosinophils # 0.3 Basophils # 0.0 Nucleated Red Blood Cells # 0.0 Sodium Level 136 Potassium Level 3.8 Chloride Level 107 Carbon Dioxide Level 21 Anion Gap 8 Blood Urea Nitrogen 5 L Creatinine 0.50 Est Glomerular Filtrat Rate mL/min > 60 Glucose Level 130 Calcium Level 8.2 L Phosphorus Level 2.6 Magnesium Level 1.9 Medications Medication Current Medications Ondansetron HCl (Zofran Inj) 4 mg Q6H PRN IV NAUSEA/VOMITING; Start 01/06/19 at 13:00 Al Hydrox/Mg Hydrox/Simethicone (Mag-Al Plus) 15 ml Q4H PRN PO .CONSTIPATION; Start 01/06/19 at 13:00 Docusate Sodium (Colace) 100 mg BID PO Last administered on 01/08/19 21:26; Admin Dose 100 MG; Start 01/07/19 at 09:00 Acetaminophen (Tylenol Tab) 650 mg Q4H PRN PO TEMP GREATER THAN 101F OR BERRY Last administered on 01/07/19at 22:01; Admin Dose 650 MG; Start 01/06/19 at 13:00 IV Flush (NS 3 ml) 3 ml PER PROTOCOL IV ; Start 01/06/19 at 13:00 Naloxone HCl (Narcan) 0.2 mg Q2M PRN IV RR 8 BREATHS/MIN OR LESS; Start 01/06/19 at 13:00 Diphenhydramine HCl (Benadryl) 25 mg Q6H PRN IV PRURITIS Last administered on 01/07/19 02:29; Admin Dose 25 MG; Start 01/06/19 at 18:00 Diphenhydramine HCl (Benadryl) 25 mg Q4 PRN IV ITCHING Last administered on 01/06/19 22:06; Admin Dose 25 MG; Start 01/06/19 at 20:00 Oxycodone/ Acetaminophen (Endocet (10/ 325)) 1 tab Q4H PRN PO SEVERE PAIN LEVEL 7-10 Last administered on 01/09/19 02:49; Admin Dose 1 TAB; Start 01/07/19 at 05:00 Potassium Chloride/Dextrose/ Sod Cl 1,000 ml @ 100 mls/hr Q10H IV Last administered on 01/09/19 01:57; Admin Dose 100 MLS/HR; Start 01/07/19 at 08:30 Progesterone (Prometrium) 100 mg HS PO Last administered on 01/08/19 21:26; Admin Dose 100 MG; Start 01/07/19 at 21:00 Amlodipine Besylate (Norvasc) 5 mg QPM PO Last administered on 01/07/19 21:02; Admin Dose 5 MG; Start 01/07/19 at 21:00 Benazepril HCl (Lotensin) 20 mg QPM PO Last administered on 01/07/19 21:02; Admin Dose 20 MG; Start 01/07/19 at 21:00 Lorazepam (Ativan) 1 mg Q6H PRN IV MUSCLE SPASMS Last administered on 01/09/19 03:58; Admin Dose 1 MG; Start 01/08/19 at 15:30 JOE COLLAZO MD January 09, 2019 07:26
[2019-01-09 07:37] VITALS: BP 106/57; PULSE 65; RESP 18
[2019-01-09] MEDS ORDERED: DEXAMETHASONE 10 MG/ML 1 ML INJ IV ONE (08:00)
--- NOTE | 2019-01-09 08:30 | CONS ---
Assessment/Plan Assessment/Plan Assessment/Plan (Daily) 1. Doling well post op lumbar back surgery 2. BP is nl 3. Labs rev 4. OK to dc per ortho and PT Consultation Date/Type/Reason Admit Date/Time January 06, 2019 at 06:00 Initial Consult Date Date/Time of Note DATE: 01/09/19 TIME: 08:29 Detailed Summary Respiratory: No cough, No shortness of breath Cardiovascular: No chest pain Gastrointestinal: no complaints Genitourinary: no complaints Musculoskeletal: back pain (mild) Exam/Review of Systems Exam Vitals Vital Signs Date Temp Pulse Resp B/P (MAP) Pulse Ox O2 O2 Flow FiO2 Time Delivery Rate 01/09/19 98.6 65 18 106/57 90 Room Air 07:37 (73) 01/08/19 2.0 07:45 Intake and Output 01/08/19 01/08/19 01/09/19 1515:00 23:00 07:00 IntakeIntake Total 700 ml 1156 ml 1150 ml OutputOutput Total 1200 ml BalanceBalance 700 ml 1156 ml -50 ml Neck: No jvd Respiratory: clear to auscultation Cardiovascular: regular rate and rhythm Extremities: No edema, No tenderness Results Result Diagram: 01/09/19 0428 01/09/19 0428 Results 24hrs Laboratory Tests Test 01/09/19 04:28 01/09/19 05:00 White Blood Count 5.8 Red Blood Count 3.61 L Hemoglobin 10.2 L Hematocrit 31.4 L Mean Corpuscular Volume 87.0 Mean Corpuscular Hemoglobin 28.3 L Mean Corpuscular Hemoglobin Concent 32.5 Red Cell Distribution Width 12.8 Platelet Count 209 # Mean Platelet Volume 10.3 Immature Granulocytes % 0.500 H Neutrophils % 68.7 Lymphocytes % 13.7 L Monocytes % 11.0 Eosinophils % 5.8 Basophils % 0.3 Nucleated Red Blood Cells % 0.0 Immature Granulocytes # 0.030 Neutrophils # 4.0 Lymphocytes # 0.8 Monocytes # 0.6 Eosinophils # 0.3 Basophils # 0.0 Nucleated Red Blood Cells # 0.0 Sodium Level 136 Potassium Level 3.8 Chloride Level 107 Carbon Dioxide Level 21 Anion Gap 8 Blood Urea Nitrogen 5 L Creatinine 0.50 Est Glomerular Filtrat Rate mL/min > 60 Glucose Level 130 Calcium Level 8.2 L Phosphorus Level 2.6 Magnesium Level 1.9 Urine Color YELLOW Urine Clarity CLEAR Urine pH 7.0 Urine Specific [place] 1.009 Urine Ketones NEGATIVE Urine Nitrite NEGATIVE Urine Bilirubin NEGATIVE Urine Urobilinogen NEGATIVE Urine Leukocyte Esterase NEGATIVE Urine Microscopic RBC 0 Urine Microscopic WBC 2 Urine Hemoglobin 1+ H Urine Glucose NEGATIVE Urine Total Protein NEGATIVE Medications Medication Current Medications Ondansetron HCl (Zofran Inj) 4 mg Q6H PRN IV NAUSEA/VOMITING; Start 01/06/19 at 13:00 Al Hydrox/Mg Hydrox/Simethicone (Mag-Al Plus) 15 ml Q4H PRN PO .CONSTIPATION; Start 01/06/19 at 13:00 Docusate Sodium (Colace) 100 mg BID PO Last administered on 01/08/19 21:26; Admin Dose 100 MG; Start 01/07/19 at 09:00 Acetaminophen (Tylenol Tab) 650 mg Q4H PRN PO TEMP GREATER THAN 101F OR BERRY Last administered on 01/07/19 22:01; Admin Dose 650 MG; Start 01/06/19 at 13:00 IV Flush (NS 3 ml) 3 ml PER PROTOCOL IV ; Start 01/06/19 at 13:00 Naloxone HCl (Narcan) 0.2 mg Q2M PRN IV RR 8 BREATHS/MIN OR LESS; Start 01/06/19 at 13:00 Diphenhydramine HCl (Benadryl) 25 mg Q6H PRN IV PRURITIS Last administered on 01/07/19 02:29; Admin Dose 25 MG; Start 01/06/19 at 18:00 Diphenhydramine HCl (Benadryl) 25 mg Q4 PRN IV ITCHING Last administered on 01/06 22:06; Admin Dose 25 MG; Start 01/06/19 at 20:00 Oxycodone/ Acetaminophen (Endocet (10/ 325)) 1 tab Q4H PRN PO SEVERE PAIN LEVEL 7-10 Last administered on 01/09/19 07:24; Admin Dose 1 TAB; Start 01/07/19 at 05:00 Potassium Chloride/Dextrose/ Sod Cl 1,000 ml @ 100 mls/hr Q10H IV Last administered on 01/09/19 01:57; Admin Dose 100 MLS/HR; Start 01/07/19 at 08:30 Progesterone (Prometrium) 100 mg HS PO Last administered on 01/08/19 21:26; Admin Dose 100 MG; Start 01/07/19 at 21:00 Amlodipine Besylate (Norvasc) 5 mg QPM PO Last administered on 01/07/19 21:02; Admin Dose 5 MG; Start 01/07/19 at 21:00 Benazepril HCl (Lotensin) 20 mg QPM PO Last administered on 01/07/19 21:02; Admin Dose 20 MG; Start 01/07/19 at 21:00 Lorazepam (Ativan) 1 mg Q6H PRN IV MUSCLE SPASMS Last administered on 01/09/19 03:58; Admin Dose 1 MG; Start 01/08/19 at 15:30 MARIKA LORD MD January 09, 2019 08:30
[2019-01-09] MEDS: DOCUSATE SODIUM 100 MG CAP PO SCH ×2 (09:18→20:34)
[2019-01-09 15:40] VITALS: BP 102/64; PULSE 91; RESP 18
[2019-01-09] MEDS: LORAZEPAM 1 MG TAB PO PRN ×2 (16:37→22:31)
[2019-01-09 19:28] VITALS: BP 111/63; PULSE 96; RESP 18
[2019-01-09] MEDS: PROGESTERONE 100 MG CAP PO SCH (20:33)
[2019-01-09] MEDS: BENAZEPRIL 20 MG TAB PO SCH (20:34)
[2019-01-09] MEDS: AMLODIPINE 5 MG TAB PO SCH (20:34)
[2019-01-09 20:35] VITALS: BP 110/68; PULSE 95; RESP 18
[2019-01-10 04:14] VITALS: BP 115/67; PULSE 87; RESP 18
[2019-01-10] MEDS: OXYCODONE/ACETAMINOPHEN (10/325) TAB PO PRN ×3 (04:36→12:32)
[2019-01-10] MEDS: LORAZEPAM 1 MG TAB PO PRN ×2 (05:21→11:15)
--- NOTE | 2019-01-10 08:07 | CONS ---
Assessment/Plan Assessment/Plan Assessment/Plan (Daily) 1. Very stable post op with much less pain. 2. BP is nl 3. Labs rev 4. OK to dc per ortho and PT Consultation Date/Type/Reason Admit Date/Time January 06, 2019 at 06:00 Initial Consult Date Date/Time of Note DATE: 01/10/19 TIME: 08:06 Detailed Summary Respiratory: No cough, No shortness of breath Cardiovascular: no complaints Gastrointestinal: no complaints Musculoskeletal: back pain (is less) Exam/Review of Systems Exam Vitals Vital Signs Date Temp Pulse Resp B/P (MAP) Pulse Ox O2 O2 Flow FiO2 Time Delivery Rate 01/10/19 98.1 87 18 115/67 99 Room Air 04:14 (83) 01/08/19 2.0 07:45 Intake and Output 01/09/19 01/09/19 01/10/19 1515:00 23:00 07:00 IntakeIntake Total 600 ml 120 ml 480 ml BalanceBalance 600 ml 120 ml 480 ml Neck: No jvd Respiratory: clear to auscultation Cardiovascular: regular rate and rhythm Gastrointestinal: soft Extremities: No calf tenderness, No edema Results Result Diagram: 01/09/19 0428 01/09/19 0428 Medications Medication Current Medications Ondansetron HCl (Zofran Inj) 4 mg Q6H PRN IV NAUSEA/VOMITING; Start 01/06/19 at 13:00 Al Hydrox/Mg Hydrox/Simethicone (Mag-Al Plus) 15 ml Q4H PRN PO .CONSTIPATION Last administered on 01/10/19at 04:46; Admin Dose 15 ML; Start 01/06/19 at 13:00 Docusate Sodium (Colace) 100 mg BID PO Last administered on 01/09/19at 20:34; Admin Dose 100 MG; Start 01/07/19 at 09:00 Acetaminophen (Tylenol Tab) 650 mg Q4H PRN PO TEMP GREATER THAN 101F OR BERRY Last administered on 01/07/19at 22:01; Admin Dose 650 MG; Start 01/06/19 at 13:00 IV Flush (NS 3 ml) 3 ml PER PROTOCOL IV ; Start 01/06/19 at 13:00 Naloxone HCl (Narcan) 0.2 mg Q2M PRN IV RR 8 BREATHS/MIN OR LESS; Start 01/06/19 at 13:00 Diphenhydramine HCl (Benadryl) 25 mg Q6H PRN IV PRURITIS Last administered on 01/07/19 02:29; Admin Dose 25 MG; Start 01/06/19 at 18:00 Diphenhydramine HCl (Benadryl) 25 mg Q4 PRN IV ITCHING Last administered on 01/06/19 22:06; Admin Dose 25 MG; Start 01/06/19 at 20:00 Oxycodone/ Acetaminophen (Endocet (10/ 325)) 1 tab Q4H PRN PO SEVERE PAIN LEVEL 7-10 Last administered on 01/10/19 04:36; Admin Dose 1 TAB; Start 01/07/19 at 05:00 Progesterone (Prometrium) 100 mg HS PO Last administered on 01/09/19 20:33; Admin Dose 100 MG; Start 01/07/19 at 21:00 Amlodipine Besylate (Norvasc) 5 mg QPM PO Last administered on 01/09/19 20:34; Admin Dose 5 MG; Start 01/07/19 at 21:00 Benazepril HCl (Lotensin) 20 mg QPM PO Last administered on 01/09/19 20:34; Admin Dose 20 MG; Start 01/07/19 at 21:00 Lorazepam (Ativan) 1 mg Q6H PRN IV MUSCLE SPASMS Last administered on 01/09/19 10:15; Admin Dose 1 MG; Start 01/08/19 at 15:30 Lorazepam (Ativan) 1 mg Q6H PRN PO ANXIETY Last administered on 01/10/19 05:21; Admin Dose 1 MG; Start 01/09/19 at 14:30 MARIKA LORD MD January 10, 2019 08:07
[2019-01-10] MEDS: DOCUSATE SODIUM 100 MG CAP PO SCH (08:48)
[2019-01-10] MEDS ORDERED: DIPHENHYDRAMINE 25 MG CAP PO PRN (09:00)
[2019-01-10 09:09] VITALS: BP 103/65; PULSE 81; RESP 19
[2019-01-10] MEDS ORDERED: DIPHENHYDRAMINE 50 MG INJ IM ONE ×2 (10:23→10:30)
--- NOTE | 2019-01-10 12:54 | PDOCDIS ---
Discharge Instructions CONDITION [id number] Patient Condition: [id number] Good HOME CARE INSTRUCTIONS: [id number] Diet Instructions: [id number] Regular ACTIVITY: [id number] Activity Restrictions: [id number] Slowly Increase Activity Rest between Activity Avoid heavy lifting Do not Drive Do not operate Machinery Do not operate Power Tool Avoid Heavy Housework [id number] Bathing Restrictions: [id number] Shower FOLLOW UP/APPOINTMENTS Follow-up Plan Follow-up with Dr. Collazo in 2 weeks JOE COLLAZO MD January 10, 2019 12:54
== END 2019-01-10 13:53 | disposition home or self-care (01) | DRG 455 ==
LOC: REC 06:00 → MS1 15:00
PROVIDERS: ADMIT Orthopaedic Surgery; ATTEND Orthopaedic Surgery
PROC: 0SG00K1 Fusion of Lumbar Vertebral Joint with Nonautologous Tissue Substitute, Posterior Approach, Posterior Column, Open Approach (ICD-10-PCS; 2019-01-06)
PROC: 0ST20ZZ Resection of Lumbar Vertebral Disc, Open Approach (ICD-10-PCS; 2019-01-06)
PROC: 4A11X4G Monitoring of Peripheral Nervous Electrical Activity, Intraoperative, External Approach (ICD-10-PCS; 2019-01-06)
PROC: 0SG00A0 Fusion of Lumbar Vertebral Joint with Interbody Fusion Device, Anterior Approach, Anterior Column, Open Approach (ICD-10-PCS; principal; 2019-01-06 08:00)
DX: M43.16 Spondylolisthesis, lumbar region (principal); M54.16 Radiculopathy, lumbar region; M48.061 Spinal stenosis, lumbar region without neurogenic claudication; E66.9 Obesity, unspecified; E78.00 Pure hypercholesterolemia, unspecified; G89.18 Other acute postprocedural pain; I10 Essential (primary) hypertension; Z68.30 Body mass index [BMI] 30.0-30.9, adult
CPT/HCPCS: 72100; 72110; 80048; 81001; 83735; 84100; 85014; 85018; 85025; 86850; 86900; 86901; 86920; 87086; 88304; 97110; 97116; 97162; 97530; C1762; J0131; J0690; J1100; J1170; J1200; J1644; J1885; J1940; J2060; J2250; J2405; J2710; J2765; J3010; J3475; J3480; L8699